=== PATIENT | female | born 1955 | race Caucasian/White ===

== ENCOUNTER 2018-03-01 12:26 | Outpatient (CLI) | payer BC | END 2018-03-01 12:27 | disposition home or self-care (01) | LOC: BICMAMMO 12:26 | PROVIDERS: ATTEND Internal Medicine | DX: Z12.31 Encounter for screening mammogram for malignant neoplasm of breast (principal); R92.1 Mammographic calcification found on diagnostic imaging of breast | CPT/HCPCS: 77063; 77067 ==

== ENCOUNTER 2021-04-01 13:17 | Outpatient (CLI) | payer MEDICARE, BC | END 2021-04-01 13:18 | disposition home or self-care (01) | LOC: BICMAMMO 13:17 | PROVIDERS: ATTEND Internal Medicine | DX: Z12.31 Encounter for screening mammogram for malignant neoplasm of breast (principal) | CPT/HCPCS: 77063; 77067 ==

== ENCOUNTER 2021-04-20 06:00 | Day surgery (SDC) | payer MEDICARE, BC ==
[2021-04-19 08:59] VITALS: BMI 24.5
== END 2021-04-20 13:50 | disposition home or self-care (01) ==
LOC: SDC 06:00
PROVIDERS: ATTEND Surgery
PROC: 06LY0ZC Occlusion of Hemorrhoidal Plexus, Open Approach (ICD-10-PCS; principal; 2021-04-20)
DX: K64.9 Unspecified hemorrhoids (principal); E03.9 Hypothyroidism, unspecified; Z88.0 Allergy status to penicillin; Z88.2 Allergy status to sulfonamides; Z79.899 Other long term (current) drug therapy; Z87.19 Personal history of other diseases of the digestive system
CPT/HCPCS: 88304; J0171; J1100; J1956; J2405; J2550; J2704; J3010; S0020

== ENCOUNTER 2024-02-07 12:36 | Outpatient (CLI) | payer MEDICARE, BC | END 2024-02-07 12:37 | disposition home or self-care (01) | LOC: BICMAMMO 12:36 | PROVIDERS: ATTEND Internal Medicine | DX: Z12.31 Encounter for screening mammogram for malignant neoplasm of breast (principal) | CPT/HCPCS: 77063; 77067 ==